=== PATIENT | female | born 1985 | race Caucasian/White ===

== ENCOUNTER 2018-06-16 09:00 | Day surgery (SDC) | payer MEDICAID ==
[2018-06-10 15:04] LABS: BASOPHILS 0.3 % (0-2); EOSINOPHILS 2.3 % (0-7); HEMATOCRIT 43.1 % (36.0-48.0); HEMOGLOBIN 14.8 g/dL (12-16); IMMATURE GRANULOCYTES 0.5 % (0-5); LYMPHOCYTES 23.9 % (15-50); MCH 31.8 pg (26.0-34.0); MCHC 34.3 g/dL (31.0-37.0); MCV 92.5 fL (80.0-100.0); PLATELET COUNT 292 10x3/uL (130-400); RBC 4.66 10x6/uL (4.00-5.40); RDW 13.8 % (11.5-14.5); WBC 13.2 10x3/uL (4.8-10.8)
[2018-06-10 15:15] LABS: CALC OSMOLALITY 279 mosm/kg (275-300); CALCIUM 8.4 mg/dL (8.5-10.1); CARBON DIOXIDE 26.7 mmol/L (21.0-32.0); CHLORIDE - SERUM 105 mmol/L (98-107); CREATININE - SERUM 0.6 mg/dL (0.6-1.3); GLUCOSE 115 mg/dL (74-106); POTASSIUM - SERUM 3.6 mmol/L (3.5-5.1); SODIUM 141 mmol/L (136-145); UREA NITROGEN 8 mg/dL (7-18); eGFR NON AFRICAN AMERICAN > 90 mL/min (90-120)
[2018-06-16] VITALS (12 sets, daily range): BP systolic 94–126; BP diastolic 58–70; Ht 160 cm; Wt 106.8 kg
[~2018-06-16] VITALS: Ht 160 cm; Wt 106.8 kg
[~2018-06-16 09:00] MED LIST: AMOXICILLIN875 MG PO; BACTRIM DS1 TAB PO; HYDROCODONE-APA1 TAB PO; MEDROL DOSE PACK4 MG PO
[2018-06-16 11:21] LABS: HCG URINE NEGATIVE (NEGATIVE)
[2018-06-16 16:58] LABS: BASOPHILS 0.2 % (0-2); EOSINOPHILS 0.1 % (0-7); HEMATOCRIT 33.9 % (36.0-48.0); HEMOGLOBIN 11.2 g/dL (12-16); IMMATURE GRANULOCYTES 0.4 % (0-5); LYMPHOCYTES 3.8 % (15-50); MCH 31.1 pg (26.0-34.0); MCV 94.2 fL (80.0-100.0); MEAN PLATELET VOLUME 9.9 fL (7.4-10.4); MONOCYTES 0.9 % (2-11); NEUTROPHILS 94.6 % (40-80); PLATELET COUNT 261 10x3/uL (130-400); RDW 13.6 % (11.5-14.5); WBC 19.5 10x3/uL (4.8-10.8)
--- NOTE | 2018-06-16 17:09 | NUR ---
CARE TRANSFERRED TO LIZETH HAN RN
--- NOTE | 2018-06-16 17:11 | NUR ---
CARE ASSUMED FROM MERARI GHOSH RN
--- NOTE | 2018-06-16 17:25 | NUR ---
RC'D FROM RR. FAMILY AT BEDSIDE. MOANING. RELATING SHE HAS "TO PEE." PT HAS A ARREOLA TO GRAVITY DRAINING GREENISH URINE FROM MEDICATIONS INSTILLED. C/O PAIN 03/17 HOWEVER RECEIVED DILAUDID 2MG IN RR AND TORADOL 30 MG AT 1645. RELATES CAN NOT TAKE PERCOCET. IT MAKES HER SICK.
--- NOTE | 2018-06-16 17:55 | NUR ---
DR NGUYEN CALLED REGARDING PATIENT'S C/O PAIN 03/17 AND THE MEDICATION ALREADY RECEIVED. ALSO TOLD DR NGUYEN PATIENT CAN NOT TAKE PERCOCET DUE TO MAKES HER SICK. DR NGUYEN IS ADMITTING PATIENT. AWAITING ADMISSION ORDERS.
--- NOTE | 2018-06-16 18:10 | NUR ---
UPSETTER CALLED FOR A L & D BED OR WOMENS SERVICE.
--- NOTE | 2018-06-16 18:25 | NUR ---
REPORT CALLED TO ANTONETTE TORRES RN. WAITING FOR ROOM TO BE CLEANED.
--- NOTE | 2018-06-16 18:37 | NUR ---
NORCO 10 PO ADMINISTERED FOR C/O PAIN 03/17.
--- NOTE | 2018-06-16 18:46 | NUR ---
TRANSFERRING TO ROOM 1276 VIA STRETCHER. FAMILY AT BEDSIDE.
--- NOTE | 2018-06-16 19:10 | NUR ---
PT RECEIVED FRON RECOVERY AT THIS TIME. AMBULATED TO BED FROM STRETCHER AT THIS TIME. ARROELA CATH IN PLACE. IV SITE PATENT TO THE RT WRIST PATENT AT THIS TIME. PLACED ON PUMP AT RATE OF 125 PER MD ORDER. SALINE LOCK TO THE LEFT FOREARM. LUNGS CLEAR. BS PRESENT BUT HYPOACTIVE. SCDS PLACED AT THIS TIME. CALL LIGHT IN EASY REACH. SIDERAILS UP FOR SAFETY X2.
--- NOTE | 2018-06-16 20:18 | NUR ---
DR NGUYEN CALLED AT THIS TIME REGARDING MOTRIN AND TORADOL AND MOTRIN ORDER. NURSE INSTRUCTED TO HOLD MOTRIN UNTIL PT WAS EATING A SOLID DIET AND THEN START PATIENT ON MOTRIN.
--- NOTE | 2018-06-16 21:08 | NUR ---
PT WITH PAIN LEVEL OF 8. MEDICATED WITH MORPHINE 2 MG SIVP. WILL MONITOR PAIN LEVELS THIS SHIFT. FAMILY BROUGHT REGULAR DIET IN AND PATIENT ONLY ATE A ROLL. WILL CONTINUE TO MONITOR DIET THIS SHFIT. SIDERAILS UP FOR SAFETY X2. CALL LIGHT IN PT REACH.
--- NOTE | 2018-06-16 22:30 | NUR ---
ARREOLA CATH EMPTIED 700ML OF URINE NOTED. PT UP TO AMBULATE IN HALLS AT THIS TIME AND TOLERATED WELL. PT PROVIDED WITH WITH PUDDING AT THIS TIME. GOWN CHANGED AND SCDS REPLACED. WILL CONTINUE TO MONITOR.
--- NOTE | 2018-06-16 23:39 | NUR ---
PATIENT CALLING OUT ON THE CALL CHAIREZ, STATES THAT SHE IS HURTING AND WANTS MORE PAIN MEDICINE. PULSE OX NOTED TO BE 91%, OXYGEN PLACED VIA NC AT 2.5L/MIN. PT ENCOURAGED TO ALLOW TORADOL TO WORK. WILL CONTINUE TO MONITOR.
--- NOTE | 2018-06-16 23:50 | NUR ---
IV TO THE RT WRIST INFILTRATED. IV FLUIDS CHANGED TO THE LEFT FOREARM AT 125 ML/HR.
--- NOTE | 2018-06-16 23:52 | NUR ---
PT COMPLAINS OF PAIN AT GREATER THAN 10. PT MEDICATED WITH HYDROCODONE AND REQUESTING TO HAVE IT SCHEDULED. PATIENT INFORMED OF CURRENT PHYSICIAN ORDER AND OPTIONS THAT ARE AVAIABLE. WILL CONTINUE TO MONITOR PAIN THIS SHIFT.
--- NOTE | 2018-06-17 00:40 | NUR ---
PT CONCERNED ABOUT ARREOLA CATHETER DRAINAGE AT THIS TIME. CATHETER DRAINED AND 850 ML OF URINE NOTED AT THIS TIME. WILL MONITOR. URINARY OUTPUT THIS SHIFT. MEI MAR
--- NOTE | 2018-06-17 02:00 | NUR ---
TURN COUGHING AND DEEP BREATHING DONE AT THIS TIME WITH PATIENT DISCUSSED PAIN MEDICATION OPTIONS WITH PATIENT AT THIS TIME.
[2018-06-17 02:04] VITALS: BP 95/53
--- NOTE | 2018-06-17 02:08 | NUR ---
PT STATES THAT SHE SHOULD PULL OUT PACKING. PT CONTUNIALLY INSTRUCTED NOT TO PULL OUT PACKING. PT ASKED WHY AND WAS INSTRUCTED SO THAT SHE WOULD NOT DISRUPT HER SURGICAL PROCEDURE. PT STATES "I WAS JUST KIDDING."
--- NOTE | 2018-06-17 04:37 | NUR ---
PT RESTING AT THIS TIME O2 AT 2.5 L/MIN REMOVED. PT ASLEEP. WILL MONITOR O2 SATS. Reji PANDYA RN
[2018-06-17 04:46] VITALS: BP 117/68
--- NOTE | 2018-06-17 04:46 | NUR ---
PT RECEIVED IN BED AT THIS TIME. IV SITE REMAINS PATENT AT THIS TIME. TO THE LEFT FOREARM. IV INFUSING AT 125 ML/HR. VSS THIS AM. PT OFFERED MARIELLA CRACKERS AND PEANUT BUTTER. BS+, NO FLATUS THIS SHIFT. INCISIONS TO THE ABDOMEN X3. DRESSINGS TO UMBILICUS AND LEFT LOWERT QUADRANT C/D/I. INCISION TO THE RT LOWER QUADRANT INTACT WITH SKIN ADHESIVE. NO S/S OF INFECTION NOTED. PT AFEBRILE THIS SHIFT. ; MEI PANDYA
--- NOTE | 2018-06-17 05:42 | NUR ---
PT MEDICATED WITH TORADOL FOR PAIN OF 7. L MEI PANDYA
--- NOTE | 2018-06-17 05:50 | NUR ---
PT UP TO AMBULATE THIS AM. ADDITIONAL 450 ML OF YELLOW URINE EMPTIED FROM CATHETER. PT TOLERATED WELL.
--- NOTE | 2018-06-17 06:51 | NUR ---
PT MEDICATED WITH HYDROCODONE FOR PAIN LEVEL OF 7.
--- NOTE | 2018-06-17 07:45 | NUR ---
DR NGUYEN IN ROOM TO SEE PT. VAG PACKING REMOVED PER DR NGUYEN.
[2018-06-17 07:54] LABS: HEMATOCRIT 29.5 % (36.0-48.0); HEMOGLOBIN 10.3 g/dL (12-16); LYMPHOCYTES 7.7 % (15-50); MCH 32.5 pg (26.0-34.0); MCHC 34.9 g/dL (31.0-37.0); MCV 93.1 fL (80.0-100.0); NEUTROPHILS 85.8 % (40-80); PLATELET COUNT 266 10x3/uL (130-400); RBC 3.17 10x6/uL (4.00-5.40); RDW 12.9 % (11.5-14.5); WBC 17.3 10x3/uL (4.8-10.8)
[2018-06-17 08:05] VITALS: BP 109/57
[2018-06-17] MEDS ORDERED: NORCO 10-325 TA1 TAB PO ×2 (08:05→10:21)
[2018-06-17] MEDS ORDERED: IBUPROFEN800 MG PO ×2 (08:06→10:31)
--- NOTE | 2018-06-17 08:30 | NUR ---
ARREOLA CATH CHANGED TO LEG BAG. PT INSTRUCTED ON CARE OF CATH.
--- NOTE | 2018-06-17 09:45 | NUR ---
SAILINE LOCK REMOVED WITHOUT INCIDENT- CATH TIP INTACT. PRESSURE HELD AND BANDAIDE APPLIED.
--- NOTE | 2018-06-17 10:05 | NUR ---
PT PROVIDED WITH SUPPLIES FOR ARREOLA CATH CARE DAILY, EMPTY CONTAINER, GLOVES ETC. PT INSTRUCTED ON USE OF ITEMS. SIGN OTHER ALSO IN ROOM. DISCHARGE INST VERBAL AND WRITTEN GIVEN- PT STATES UNDERSTANDING. PRESCRIPTIONS FOR HYDROCODONE AND IBUPROFEN GIVEN ALONG WITH PT MED REC. PT DENIES QUESTIONS.
--- NOTE | 2018-06-17 10:43 | NUR ---
PT AMBULATORY OFF UNIT PER REQUEST ACCOMPANIED BY NURSE. FAMILY IN AUTO TO DRIVE PT HOME.
== END 2018-06-17 10:43 | disposition home or self-care (01) ==
LOC: D.OPS 09:00 → D.PAN 09:30 → D.OPS 09:30 → D.LD 18:49 → D.OPS 06-17 10:43
PROVIDERS: Anesthesiology; Obstetrics & Gynecology
DX: N93.8 Other specified abnormal uterine and vaginal bleeding (principal); N39.3 Stress incontinence (female) (male); N81.3 Complete uterovaginal prolapse; N81.11 Cystocele, midline; D62 Acute posthemorrhagic anemia; Z22.322 Carrier or suspected carrier of Methicillin resistant Staphylococcus aureus; Z01.812 Encounter for preprocedural laboratory examination